=== PATIENT | male | born 1975 | race American Indian/Alaskan Native ===

== ENCOUNTER 2018-08-26 16:23 | Emergency (ER) | payer OTHER ==
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
[2018-08-26] MEDS ORDERED: FLEXERIL PO ONE (18:57)
[2018-08-26] MEDS ORDERED: NORCO 5/325 PO ONE (18:57)
[2018-08-26 19:50] VITALS: BP 101/67
== END 2018-08-26 19:52 | disposition home or self-care (01) ==
LOC: ED 16:23
DX: S30.0XXA Contusion of lower back and pelvis, initial encounter (principal); S80.01XA Contusion of right knee, initial encounter; V89.2XXA Person injured in unspecified motor-vehicle accident, traffic, initial encounter; Y93.89 Activity, other specified; Y92.488 Other paved roadways as the place of occurrence of the external cause; Y99.8 Other external cause status
CPT/HCPCS: 72100; 99283